=== PATIENT | female | born 1995 | race African-American/Black ===

== ENCOUNTER 2017-11-19 23:18 | Emergency (ER) | payer MEDICAID ==
[~2017-11-19] VITALS: Ht 167.6 cm; Wt 86.2 kg
[2017-11-20 00:18] LABS: Urine Bacteria NONE SEEN /hpf (None Seen); Urine Blood Negative /uL (Negative); Urine Mucus FEW (None Seen); Urine Specific Gravity 1.027 (1.001-1.035); Urine WBC 4 /hpf (0 - 5)
[2017-11-20 03:09] VITALS: BP 128/83
== END 2017-11-20 03:03 | disposition home or self-care (01) ==
LOC: ER 23:18
DX: O26.891 Other specified pregnancy related conditions, first trimester (principal); Z3A.00 Weeks of gestation of pregnancy not specified
CPT/HCPCS: 81001; 81025

== ENCOUNTER 2018-07-28 17:09 | Emergency (ER) | payer MEDICAID ==
[~2018-07-28] VITALS: Ht 167.6 cm; Wt 81.6 kg
[2018-07-28 18:30] LABS: Basophils # (auto) 0.1 uL; Basophils % (auto) 0.5 % (0.0-2.0); Eosinophils # (auto) 0.1 uL; Eosinophils % (auto) 0.4 % (0.0-7.0); Hemoglobin 13.6 g/dL (12.2-16.2); Lymphocytes # (auto) 2.1 uL; Mean Corpuscular Hemoglobin 31.7 pg (28.0-32.0); Mean Corpuscular Hgb Conc. 34.1 g/dL (32.0-36.0); Monocytes # (auto) 0.9 uL; Monocytes % (auto) 6.2 % (0.0-12.0); Neutrophils # (auto) 11.8 uL; Neutrophils % (auto) 78.9 % (37.0-80.0); Nucleated Red Blood Cells % 0.1 %; Platelet Count (auto) 217 10^3/uL (140-450); Red Cell Distribution Width 12.5 % (11.8-14.3)
[2018-07-28 18:40] LABS: Albumin 3.6 g/dL (3.4-5.0); Calcium 8.8 mg/dL (8.5-10.1); Potassium 3.4 mmol/L (3.5-5.1)
[2018-07-28 18:43] LABS: BUN/Creatinine Ratio 9.7; Bilirubin, Total 0.4 mg/dL (0.2-1.0); Total Protein 7.4 g/dL (6.4-8.2)
[2018-07-28 20:01] LABS: Urine Bacteria NONE SEEN /hpf (None Seen); Urine Blood Negative /uL (Negative); Urine Specific Gravity 1.002 (1.001-1.035); Urine WBC 1 /hpf (0 - 5)
[2018-07-28 20:55] VITALS: BP 106/52
== END 2018-07-28 20:58 | disposition home or self-care (01) ==
LOC: ER 17:16
DX: O26.891 Other specified pregnancy related conditions, first trimester (principal); R10.9 Unspecified abdominal pain; Z3A.01 Less than 8 weeks gestation of pregnancy
CPT/HCPCS: 36415; 76801; 80053; 81001; 84702; 85025

== ENCOUNTER 2018-12-25 19:48 | Observation (INO) | payer MEDICAID ==
[~2018-12-25] VITALS: Ht 167.6 cm; Wt 82.6 kg
== END 2018-12-25 20:41 | disposition home or self-care (01) | DRG 565 ==
LOC: LDRP 19:48
PROVIDERS: ADMIT Specialist; ATTEND Specialist
DX: O47.9 False labor, unspecified (principal); Z3A.28 28 weeks gestation of pregnancy; Z51.5 Encounter for palliative care
CPT/HCPCS: 59025; 81002; G0378

== ENCOUNTER 2019-02-20 06:55 | Observation (INO) | payer MEDICAID ==
[~2019-02-20] VITALS: Ht 172.7 cm; Wt 83.0 kg
[2019-02-20] MEDS ORDERED: TERBUTALINE SULFATE 1 MG/ML 1ML VIAL SC ONE (08:15)
[2019-02-20] MEDS ORDERED: BETAMETHASONE ACET (6MG/ML) 5ML VIAL IM SCH (08:30)
== END 2019-02-20 09:25 | disposition home or self-care (01) | DRG 566 ==
LOC: LDRP 06:55
PROVIDERS: ADMIT Specialist; ATTEND Specialist
DX: O62.9 Abnormality of forces of labor, unspecified (principal); O26.893 Other specified pregnancy related conditions, third trimester; N89.8 Other specified noninflammatory disorders of vagina; Z3A.36 36 weeks gestation of pregnancy
CPT/HCPCS: 59025; 81002; 96372; G0378; J0702; J3105

== ENCOUNTER 2019-03-24 12:07 | Emergency (ER) | payer MEDICAID ==
[~2019-03-24] VITALS: Ht 167.6 cm; Wt 77.1 kg
[~2019-03-24 12:07] MED LIST: PREN-96 PO
[2019-03-24 12:44] LABS: Basophils # (auto) 0.1 uL; Basophils % (auto) 0.8 % (0.0-2.0); Eosinophils # (auto) 0.1 uL; Eosinophils % (auto) 0.9 % (0.0-7.0); Hematocrit 41.4 % (36.0-46.0); Hemoglobin 14.1 g/dL (12.2-16.2); Lymphocytes # (auto) 2.8 uL; Lymphocytes % (auto) 32.9 % (10.0-50.0); Mean Corpuscular Hemoglobin 31.3 pg (28.0-32.0); Mean Corpuscular Hgb Conc. 34.1 g/dL (32.0-36.0); Mean Corpuscular Volume 91.7 fL (80.0-100.0); Monocytes # (auto) 0.5 uL; Monocytes % (auto) 5.3 % (0.0-12.0); Neutrophils # (auto) 5.2 uL; Neutrophils % (auto) 60.1 % (37.0-80.0); Nucleated Red Blood Cells % 0.1 %; Platelet Count (auto) 243 10^3/uL (140-450); Red Blood Cells 4.52 10^6/uL (4.0-5.20); Red Cell Distribution Width 12.5 % (11.8-14.3); White Blood Cell 8.6 10^3/uL (4.4-10.8)
[2019-03-24 12:58] LABS: BUN/Creatinine Ratio 11.4; Calcium 8.6 mg/dL (8.5-10.1); Potassium 3.2 mmol/L (3.5-5.1)
[2019-03-24] MEDS ORDERED: PROMETHAZINE HCL 25 MG/ML 1ML IM ONE (13:00)
[2019-03-24] MEDS ORDERED: SODIUM CHLORIDE 0.9% 1,000 ML IV ONE (13:30)
[2019-03-24] MEDS ORDERED: POTASSIUM CHL 20 Meq TABLET PO ONE (13:45)
[2019-03-24 13:46] LABS: Alcohol, Urine < 3.0 mg/dL (0-5); Amphetamine Screen, Urine NEGATIVE (NEGATIVE); Barbiturate Scree,Urine NEGATIVE (NEGATIVE); Benzodiazephine Screen, Urine NEGATIVE (NEGATIVE); Cannabinoid Screen, Urine NEGATIVE (NEGATIVE); Cocaine Screen, Urine NEGATIVE (NEGATIVE); Opiate Scree,Urine NEGATIVE (NEGATIVE); Phencyclidine Screen, Urine NEGATIVE (NEGATIVE)
[2019-03-24] MEDS ORDERED: cefTRIAXone 1GM/50ML D5W 50 ML IV ONE (14:45)
[2019-03-24 15:45] VITALS: BP 99/56
== END 2019-03-24 15:48 | disposition home or self-care (01) ==
LOC: ER 12:10
DX: R11.2 Nausea with vomiting, unspecified (principal); N39.0 Urinary tract infection, site not specified; R42 Dizziness and giddiness
CPT/HCPCS: 36415; 70450; 80048; 80307; 85025; 96361; 96365; 96372; 99284; J0696; J2550; J7030

== ENCOUNTER 2019-08-06 10:36 | Emergency (ER) | payer SELFPAY ==
[~2019-08-06] VITALS: Ht 167.6 cm; Wt 77.1 kg
[2019-08-06 10:42] VITALS: BP 106/72
[2019-08-06] MEDS ORDERED: SODIUM CHLORIDE 0.9% 1,000 ML IV ONE (10:45)
[2019-08-06 11:37] LABS: Basophils # (auto) 0 uL; Basophils % (auto) 0.4 % (0.0-2.0); Eosinophils # (auto) 0.1 uL; Eosinophils % (auto) 0.7 % (0.0-7.0); Hematocrit 36.9 % (36.0-46.0); Lymphocytes # (auto) 0.6 uL; Mean Corpuscular Hemoglobin 32.4 pg (28.0-32.0); Mean Corpuscular Hgb Conc. 35.3 g/dL (32.0-36.0); Mean Corpuscular Volume 91.9 fL (80.0-100.0); Monocytes # (auto) 0.7 uL; Monocytes % (auto) 7.6 % (0.0-12.0); Neutrophils # (auto) 8.2 uL; Neutrophils % (auto) 85.3 % (37.0-80.0); Platelet Count (auto) 165 10^3/uL (140-450); Red Blood Cells 4.02 10^6/uL (4.0-5.20); White Blood Cell 9.7 10^3/uL (4.4-10.8)
[2019-08-06 12:00] LABS: Alanine Aminotransferase 15 U/L (13-56); Albumin 3.2 g/dL (3.4-5.0); Anion Gap 6 (5-15); Aspartate Aminotransferase 11 U/L (15-37); BUN/Creatinine Ratio 14.3; Bilirubin, Total 0.6 mg/dL (0.2-1.0); Blood Urea Nitrogen 8 mg/dL (7-18); Calcium 8.3 mg/dL (8.5-10.1); Carbon Dioxide 26 mmol/L (21-32); Chloride 108 mmol/L (98-107); GFR African American 176 mL/min; GFR Non-African American 145 mL/min; Glucose 80 mg/dL (74-106); Potassium 3.9 mmol/L (3.5-5.1); Sodium 140 mmol/L (136-145); Total Protein 6.9 g/dL (6.4-8.2)
[2019-08-06 12:04] LABS: Alkaline Phosphatase 47 U/L (45-117)
== END 2019-08-06 15:25 | disposition left against medical advice (07) ==
LOC: ER 10:36 → EDBD 10:36 → ER 15:25
DX: O26.892 Other specified pregnancy related conditions, second trimester (principal); R55 Syncope and collapse; Z3A.15 15 weeks gestation of pregnancy; Z53.29 Procedure and treatment not carried out because of patient's decision for other reasons
CPT/HCPCS: 36415; 76805; 80053; 84484; 84702; 85025; 93005

== ENCOUNTER 2019-10-05 07:05 | Observation (INO) | payer MEDICAID ==
[~2019-10-05] VITALS: Ht 167.6 cm; Wt 78.5 kg
[2019-10-05] MEDS ORDERED: SODIUM CHLORIDE 0.9% 1,000 ML IV ONE (07:09)
[2019-10-05 08:00] VITALS: BP 106/71
[2019-10-05 08:08] LABS: Basophils # (auto) 0.1 uL; Basophils % (auto) 0.5 % (0.0-2.0); Eosinophils # (auto) 0.1 uL; Eosinophils % (auto) 0.7 % (0.0-7.0); Hematocrit 32.9 % (36.0-46.0); Hemoglobin 11.7 g/dL (12.2-16.2); Lymphocytes % (auto) 16.6 % (10.0-50.0); Mean Corpuscular Hemoglobin 32.7 pg (28.0-32.0); Mean Corpuscular Hgb Conc. 35.6 g/dL (32.0-36.0); Mean Corpuscular Volume 91.7 fL (80.0-100.0); Monocytes # (auto) 0.7 uL; Monocytes % (auto) 5.8 % (0.0-12.0); Neutrophils # (auto) 9.3 uL; Neutrophils % (auto) 76.4 % (37.0-80.0); Platelet Count (auto) 163 10^3/uL (140-450); Red Blood Cells 3.58 10^6/uL (4.0-5.20); Red Cell Distribution Width 12.5 % (11.8-14.3); White Blood Cell 12.1 10^3/uL (4.4-10.8)
[2019-10-05 08:27] LABS: Albumin 2.7 g/dL (3.4-5.0); Calcium 8.3 mg/dL (8.5-10.1); Potassium 3.1 mmol/L (3.5-5.1)
[2019-10-05 08:30] LABS: BUN/Creatinine Ratio 20.4; Bilirubin, Total 0.4 mg/dL (0.2-1.0); Total Protein 6.4 g/dL (6.4-8.2)
[2019-10-05] MEDS ORDERED: POTASSIUM CHL 20 Meq TABLET PO ONE (08:45)
[2019-10-05 09:19] LABS: Urine Bacteria NONE SEEN /hpf (None Seen); Urine Blood Negative /uL (Negative); Urine Mucus MODERATE (None Seen); Urine Specific Gravity 1.031 (1.001-1.035); Urine WBC 19 /hpf (0 - 5)
== END 2019-10-05 11:00 | disposition home or self-care (01) | DRG 566 ==
LOC: ER 07:05 → EDBD 07:05 → LDRP 09:25
PROVIDERS: ADMIT Obstetrics & Gynecology; ATTEND Obstetrics & Gynecology
DX: O40.3XX0 Polyhydramnios, third trimester, not applicable or unspecified (principal); O26.892 Other specified pregnancy related conditions, second trimester; E87.6 Hypokalemia; R42 Dizziness and giddiness; R55 Syncope and collapse; Z3A.27 27 weeks gestation of pregnancy
CPT/HCPCS: 36415; 59025; 80053; 81001; 81002; 85025; 96360; 99284; G0378; 93005

== ENCOUNTER 2019-11-07 12:55 | Emergency (ER) | payer MEDICAID ==
[~2019-11-07] VITALS: Ht 167.6 cm; Wt 72.6 kg
[2019-11-07] MEDS ORDERED: SODIUM CHLORIDE 0.9% 1,000 ML IV ONE ×2 (13:10)
[2019-11-07 13:27] VITALS: BP 108/62
[2019-11-07 13:33] LABS: Basophils # (auto) 0 uL; Basophils % (auto) 0.1 % (0.0-2.0); Eosinophils # (auto) 0 uL; Hematocrit 32.5 % (36.0-46.0); Hemoglobin 11.4 g/dL (12.2-16.2); Lymphocytes # (auto) 0.3 uL; Lymphocytes % (auto) 5.4 % (10.0-50.0); Mean Corpuscular Hemoglobin 32.3 pg (28.0-32.0); Mean Corpuscular Hgb Conc. 35.1 g/dL (32.0-36.0); Mean Corpuscular Volume 91.8 fL (80.0-100.0); Monocytes # (auto) 0.1 uL; Monocytes % (auto) 1.5 % (0.0-12.0); Platelet Count (auto) 127 10^3/uL (140-450); Red Blood Cells 3.54 10^6/uL (4.0-5.20); Red Cell Distribution Width 12.4 % (11.8-14.3); White Blood Cell 5.4 10^3/uL (4.4-10.8)
[2019-11-07] MEDS ORDERED: ACETAMINOPHEN 500 MG TAB PO ONE (13:45)
[2019-11-07 13:50] LABS: Albumin 2.5 g/dL (3.4-5.0); Calcium 7.8 mg/dL (8.5-10.1)
[2019-11-07 13:53] LABS: BUN/Creatinine Ratio 6.7; Bilirubin, Total 1.5 mg/dL (0.2-1.0); Total Protein 6.1 g/dL (6.4-8.2)
[2019-11-07 14:36] LABS: Urine Bacteria NONE SEEN /hpf (None Seen); Urine Blood 1+ /uL (Negative); Urine Mucus FEW (None Seen); Urine Specific Gravity 1.017 (1.001-1.035); Urine WBC 845 /hpf (0 - 5)
== END 2019-11-07 15:17 | disposition home or self-care (01) ==
LOC: ER 12:55 → EDUNIT# 12:55 → ER 15:12
DX: O23.03 Infections of kidney in pregnancy, third trimester (principal); O16.3 Unspecified maternal hypertension, third trimester; Z3A.28 28 weeks gestation of pregnancy
CPT/HCPCS: 36415; 76805; 80053; 81001; 84702; 85025

== ENCOUNTER 2020-01-11 15:42 | Observation (INO) | payer MEDICAID, OTHER ==
[~2020-01-11] VITALS: Ht 167.6 cm; Wt 83.0 kg
[2020-01-11 16:10] VITALS: BP 99/59
== END 2020-01-11 21:20 | disposition home or self-care (01) | DRG 566 ==
LOC: EDBD 15:42 → ER 15:44 → LDRP 16:48
PROVIDERS: ADMIT Obstetrics & Gynecology; ATTEND Obstetrics & Gynecology
DX: O9A.219 Injury, poisoning and certain other consequences of external causes complicating pregnancy, unspecified trimester (principal); S16.1XXA Strain of muscle, fascia and tendon at neck level, initial encounter; O16.9 Unspecified maternal hypertension, unspecified trimester; Z3A.00 Weeks of gestation of pregnancy not specified; V47.5XXA Car driver injured in collision with fixed or stationary object in traffic accident, initial encounter; Y93.89 Activity, other specified; Y92.89 Other specified places as the place of occurrence of the external cause; Y99.8 Other external cause status
CPT/HCPCS: 59025; 72040; 76815; G0378

== ENCOUNTER 2020-01-17 11:07 | Inpatient (IN) | payer MEDICAID ==
[~2020-01-17] VITALS: Ht 167.6 cm; Wt 85.7 kg
[2020-01-17 14:11] LABS: Urine Bacteria FEW /hpf (None Seen); Urine Blood TRACE /uL (Negative); Urine Mucus FEW (None Seen); Urine Specific Gravity 1.015 (1.001-1.035); Urine WBC 694 /hpf (0 - 5)
[2020-01-17] MEDS ORDERED: LACTATED RINGER'S 1,000 ML IV SCH (15:39)
[2020-01-17] MEDS ORDERED: LACT. RINGERS/OXYTOCIN 20UNITS 1,000 ML IV SCH (15:39)
[2020-01-17] MEDS ORDERED: DERMOPLAST 60ML BOTTLE TOP PRN (15:45)
[2020-01-17] MEDS ORDERED: LIDOCAINE 2%HCL (LOCAL ANESTH.) INJ 20ML MDV ID PRN (15:45)
[2020-01-17] MEDS ORDERED: METHYLERGONOVINE MALEATE 0.2 MG/ML AMP IM PRN (15:45)
[2020-01-17] MEDS ORDERED: PHISODERM TOP SOLN 240ML BTL TOP PRN (15:45)
[2020-01-17] MEDS ORDERED: WITCH HAZEL-GLYCERIN PAD TOP PRN (15:45)
[2020-01-17 16:19] LABS: Basophils # (auto) 0.1 10 ^3/uL (0-0.2); Basophils % (auto) 0.6 % (0.0-2.0); Eosinophils # (auto) 0 10 ^3/uL (0-0.8); Eosinophils % (auto) 0.3 % (0.0-7.0); Hematocrit 37.8 % (36.0-46.0); Hemoglobin 13.1 g/dL (12.2-16.2); Lymphocytes # (auto) 2.7 10 ^3/uL (0.4-5.4); Lymphocytes % (auto) 17.5 % (10.0-50.0); Mean Corpuscular Hemoglobin 31.5 pg (28.0-32.0); Mean Corpuscular Hgb Conc. 34.6 g/dL (32.0-36.0); Monocytes # (auto) 0.9 10 ^3/uL (0-1.3); Neutrophils # (auto) 11.5 10 ^3/uL (1.6-8.6); Neutrophils % (auto) 75.6 % (37.0-80.0); Nucleated Red Blood Cells % 0.1 %; Platelet Count (auto) 148 10^3/uL (140-450); Red Blood Cells 4.16 10^6/uL (4.0-5.20); Red Cell Distribution Width 13.4 % (11.8-14.3); White Blood Cell 15.2 10^3/uL (4.4-10.8)
[2020-01-17 16:34] LABS: Albumin 2.9 g/dL (3.4-5.0); Calcium 8.7 mg/dL (8.5-10.1); INR 0.94 (0.9-1.15); Partial Thromboplastin Time 28.5 sec (23.64-32.05); Potassium 3.8 mmol/L (3.5-5.1)
[2020-01-17 16:37] LABS: BUN/Creatinine Ratio 6.3
[2020-01-17 16:39] LABS: Bilirubin, Total 0.5 mg/dL (0.2-1.0)
[2020-01-17] MEDS ORDERED: LACTATED RINGER'S 500 ML IV ONE (16:49)
[2020-01-17] MEDS ORDERED: fentaNYL 200mCg/100ml W ROPIVA 100 ML EPI SCH ×2 (17:00→18:30)
[2020-01-17] MEDS ORDERED: NALOXONE HCL 0.4 MG/ML VIAL IV ONE (17:00)
[2020-01-17] MEDS ORDERED: fentaNYL CITRATE 100 MCG/2 ML VL IV ONE (17:00)
[2020-01-17] MEDS ORDERED: ePHEDrine SULFATE 50 MG/ML AMP IV ONE (17:00)
[2020-01-17] MEDS ORDERED: LIDOCAINE HCL 2 %PF INJ 10ML AMP IJ ONE (17:00)
[2020-01-17 17:21] LABS: Alcohol, Urine < 3.0 mg/dL (0-5); Amphetamine Screen, Urine NEGATIVE (NEGATIVE); Barbiturate Scree,Urine NEGATIVE (NEGATIVE); Benzodiazephine Screen, Urine NEGATIVE (NEGATIVE); Cannabinoid Screen, Urine POSITIVE (NEGATIVE); Cocaine Screen, Urine NEGATIVE (NEGATIVE); Opiate Scree,Urine NEGATIVE (NEGATIVE)
[2020-01-17 17:28] LABS: Phencyclidine Screen, Urine NEGATIVE (NEGATIVE)
--- NOTE | 2020-01-17 21:05 | NUR ---
Bottle-feeding Education: Patient not encouraged to breastfeed due to UDS positive for THC. Formula provided and instruction on formula preperation from the New Beginning booklet reviewed with patient.
--- NOTE | 2020-01-17 23:20 | NUR ---
Epidural catheter removed, blue tip intact. PT tolerated well.
--- NOTE | 2020-01-17 23:25 | NUR ---
Ambulation: Patient OOB with standby assistance by RN. Patient ambulated to bathroom with steady gait. Patient able to void 500 ml without difficulty. Pericare teaching provided with returned demonstration by patient. Clean gown provided and bed linen changed. Patient ambulated back to bed with steady gait and no distress noted.
[2020-01-18 03:15] VITALS: BP 97/55
[2020-01-18] MEDS: IBUPROFEN 600 MG TAB PO PRN (03:35)
[2020-01-18 07:15] VITALS: BP 98/51
[2020-01-18 11:28] VITALS: BP 124/83
--- NOTE | 2020-01-18 13:29 | NUR ---
PT reports abd cramping as 8/[address] Dorsey, orders rec'd.
[2020-01-18] MEDS: ACETAMINOPHEN/CODEINE#3 (300/30mg) TAB PO PRN ×2 (13:41→17:47)
--- NOTE | 2020-01-18 14:30 | NUR ---
Discharge: Discharge instructions given as ordered. Pt encouraged to follow up with SECURITY OPERATIONS SPECIALIST as instructed. All questions and concerns addressed. Patient verbalized understanding. Medication reconciliation completed and copy given to patient. All required/requested vaccines given and copies of vaccinations given to patient. Patient encouraged to prepare to depart unit. Addendum: 01/18/20 at 1528 by Danielle Freeman RN NOTE ENTERED UNDER WRONG PT.
[2020-01-18 15:00] VITALS: BP 110/62
--- NOTE | 2020-01-18 15:14 | NUR ---
Received Social Service consult regarding positive drug screen for Female [address] Baby. Baby was not positive. Discussed with pt UDS and source of positive results. Per pt She smoked one time towards the end of the for pain. Pt states she does not use drugs regularly or drink. Mom is going to breast feed but not until all THC is out of her system. Mom was given a drug resource packet. [facility], ([phone] [id number]) Narcotics Anonymous call 211. Mom also has a male 10 month old baby at home. There is a father who is involved with the family. Pt states she has supplies for the baby and a car seat. Will fill out CPS form and fax it to CPS. Senior Environmental Practice Leader will also Call report to CPS.
--- NOTE | 2020-01-18 16:03 | NUR ---
[facility] number is [phone]. The Flash Welder was Suzy
[2020-01-18 18:30] VITALS: BP 107/62
[2020-01-18 23:10] VITALS: BP 116/71
[2020-01-19] MEDS: ACETAMINOPHEN/CODEINE#3 (300/30mg) TAB PO PRN ×2 (00:22→05:12)
--- NOTE | 2020-01-19 01:25 | NUR ---
Patient moved to room 7B Patient updated with POC, verbalized understanding. All personal belongings taken with patient, Patient ambulated with steady gait infant in open crib, swaddled in blankets no S/S of distress, FOB standby assist.
[2020-01-19] MEDS: IBUPROFEN 600 MG TAB PO PRN (01:58)
[2020-01-19 03:07] LABS: RPR Non Reactive (Non Reactive)
[2020-01-19 03:15] VITALS: BP 95/60
[2020-01-19 07:30] VITALS: BP 107/60
--- NOTE | 2020-01-19 08:30 | NUR ---
Discharge: Discharge instructions given as ordered. Pt encouraged to follow up with COVERSTITCH ELASTIC ATTACHER as instructed. All questions and concerns addressed. Patient verbalized understanding. Medication reconciliation completed and copy given to patient. All required/requested vaccines given and copies of vaccinations given to patient. Patient encouraged to prepare to depart unit.
--- NOTE | 2020-01-19 08:55 | NUR ---
Discharge: Patient taken to vehicle via wheelchair with all personal belongings, accompanied by staff and family member. No distress noted at time of departure, no adverse changes in status since initial assessment.
== END 2020-01-19 08:55 | disposition home or self-care (01) | DRG 560 ==
LOC: LDRP 11:07 → OBSVTOIN 15:38 → LDRP 15:47
PROVIDERS: ADMIT Specialist; ATTEND Specialist
PROC: 10E0XZZ Delivery of Products of Conception, External Approach (ICD-10-PCS; principal; 2020-01-17)
PROC: 3E0R3BZ Introduction of Anesthetic Agent into Spinal Canal, Percutaneous Approach (ICD-10-PCS; 2020-01-17)
PROC: 00HU33Z Insertion of Infusion Device into Spinal Canal, Percutaneous Approach (ICD-10-PCS; 2020-01-17)
DX: O99.324 Drug use complicating childbirth (principal); F12.90 Cannabis use, unspecified, uncomplicated; Z37.0 Single live birth; Z3A.39 39 weeks gestation of pregnancy
CPT/HCPCS: 36415; 59025; 59409; 62282; 76805; 80053; 80307; 81001; 81002; 84112; 85025; 85610; 85730; 86592; 86850; 86900; 86901; 96365; 96366; G0378; J2590

== ENCOUNTER 2021-09-03 07:33 | Emergency (ER) | payer MEDICAID ==
[~2021-09-03] VITALS: Ht 167.6 cm; Wt 81.6 kg
[2021-09-03 08:29] LABS: Urine Bacteria FEW /hpf (None Seen); Urine Blood 3+ /uL (Negative); Urine Mucus FEW (None Seen); Urine Specific Gravity 1.026 (1.001-1.035); Urine WBC 45 /hpf (0 - 5)
[2021-09-03 08:38] LABS: Basophils # (auto) 0.1 10 ^3/uL (0-0.2); Basophils % (auto) 0.8 % (0.0-2.0); Eosinophils # (auto) 0.1 10 ^3/uL (0-0.8); Eosinophils % (auto) 1.3 % (0.0-7.0); Hematocrit 39.5 % (36.0-46.0); Hemoglobin 13.5 g/dL (12.2-16.2); Lymphocytes # (auto) 2.3 10 ^3/uL (0.4-5.4); Mean Corpuscular Hgb Conc. 34.2 g/dL (32.0-36.0); Mean Corpuscular Volume 93.6 fL (80.0-100.0); Monocytes # (auto) 0.7 10 ^3/uL (0-1.3); Monocytes % (auto) 6.6 % (0.0-12.0); Neutrophils # (auto) 7.4 10 ^3/uL (1.6-8.6); Neutrophils % (auto) 69.3 % (37.0-80.0); Nucleated Red Blood Cells % 0.2 %; Red Blood Cells 4.23 10^6/uL (4.0-5.20); Red Cell Distribution Width 12.3 % (11.8-14.3); White Blood Cell 10.6 10^3/uL (4.4-10.8)
[2021-09-03 09:44] VITALS: BP 107/64
== END 2021-09-03 11:52 | disposition home or self-care (01) ==
LOC: ER 07:33
DX: O23.41 Unspecified infection of urinary tract in pregnancy, first trimester (principal); N39.0 Urinary tract infection, site not specified; Z79.899 Other long term (current) drug therapy; Z3A.01 Less than 8 weeks gestation of pregnancy
CPT/HCPCS: 36415; 76801; 76817; 81001; 84702; 85025

== ENCOUNTER 2021-09-27 23:19 | Emergency (ER) | payer MEDICAID ==
[~2021-09-27] VITALS: Ht 167.6 cm; Wt 81.6 kg
[2021-09-27 23:26] VITALS: BP 105/71
== END 2021-09-28 23:53 | disposition left against medical advice (07) ==
LOC: ER 23:19
DX: R21 Rash and other nonspecific skin eruption (principal); Z53.21 Procedure and treatment not carried out due to patient leaving prior to being seen by health care provider

== ENCOUNTER 2021-10-13 01:29 | Emergency (ER) | payer MEDICAID ==
[~2021-10-13] VITALS: Ht 167.6 cm; Wt 81.6 kg
[2021-10-13 01:33] VITALS: BP 117/80
== END 2021-10-13 03:36 | disposition left against medical advice (07) ==
LOC: ER 01:30
DX: R05.9 Cough, unspecified (principal); R19.7 Diarrhea, unspecified; Z53.21 Procedure and treatment not carried out due to patient leaving prior to being seen by health care provider